=== PATIENT | female | born 1965 | race Caucasian/White ===

== ENCOUNTER 2023-05-16 06:11 | Day surgery (SDC) | payer BC, SELFPAY ==
--- NOTE | 2023-05-11 10:44 | CM ---
Patient is scheduled for surgery with Dr. Mcdonald on 05/16/23. Spoke with patient prior to surgery via telephone. Introduced role of case management. Patient reports that she lives alone in an old multi story farmhouse. She does have a full bathroom
on the first floor and can stay on this floor if needed. She functions independently. She has a shower seat. She has never had VN services in the past. She has a prescription plan and uses [facility].
Patient states that she will talk to her daughter about staying with her the first night she is home but she is unsure of she will be able to. She states that she is very independent and used to doing things on her own. She has no discharge planning
concerns at this time.
[2023-05-16] VITALS (9 sets, daily range): BP systolic 110–170; BP diastolic 52–95; BMI 29.1
[2023-05-16] MEDS: NORMOSOL-R 1000 IV (06:47)
== END 2023-05-16 09:20 | disposition home or self-care (01) ==
LOC: SDS 06:11
PROVIDERS: ATTENDING PHYSICIAN Obstetrics & Gynecology
DX: G24.8 Other dystonia (principal); K62.89 Other specified diseases of anus and rectum; K59.00 Constipation, unspecified; R10.2 Pelvic and perineal pain
CPT/HCPCS: 64646; J0585

== ENCOUNTER 2024-10-15 14:22 | Emergency (ER) | payer BC, SELFPAY ==
[2024-10-15 14:26] VITALS: BP 171/100
[2024-10-15 14:48] LABS: % Basophils 0.5 % (0-2); % Eosinophils 0.9 % (0-6); % Immature Granulocytes 0.3 % (0-0.5); % Lymphocytes 29.8 % (20.5-51.1); % Monocytes 8.4 % (1.7-9.3); % Neutrophils 60.1 % (42.2-75.2); Absolute Eosinophils 0.1 10^3/uL (0-0.7); Absolute Lymphocytes 2.2 10^3/uL (1.2-3.4); Absolute Monocytes 0.6 10^3/uL (0.1-0.6); Absolute Neutrophils 4.4 10^3/uL (1.4-6.5); Hematocrit 41.2 % (37.0-47.0); Mean Corpuscular Hgb 30.5 pg (27.0-31.0); Mean Corpuscular Volume 89.8 fL (81.0-99.0); Nucleated Red Blood Cells % 0 %; Platelet Count 350 10^3/uL (130-400); Red Blood Cell Count 4.59 10^6/uL (4.20-5.40); Red Cell Dist. Width 12.5 % (11.5-14.5); White Blood Cell Count 7.4 10^3/uL (4.8-10.8)
[2024-10-15 15:13] LABS: Albumin 4.5 g/dl (3.5-5.0); Blood Urea Nitrogen 19 mg/dl (7-17); Calcium 9.8 mg/dl (8.4-10.2); Carbon Dioxide 28 mmol/L (22-30); Chloride 109 mmol/L (98-107); Lipase 85 U/L (23-300); Potassium 4.3 mmol/L (3.5-5.1); Sodium 143 mmol/L (135-145); Total Bilirubin 0.9 mg/dl (0.2-1.3); Total Protein 7.4 g/dl (6.3-8.2); eGFR > 60.00
[2024-10-15 15:23] LABS: ALT (SGPT) 23 U/L (0-35); AST (SGOT) 24 U/L (14-36); Alkaline Phosphatase 103 U/L (38-126); Glucose 99 mg/dl (70-99)
[2024-10-15 16:48] VITALS: BP 162/89; BMI 27.5
[2024-10-15 17:00] VITALS: BP 168/79
[2024-10-15] MEDS: TORADOL 15 MG IV (17:45)
[2024-10-15] MEDS: NSS 1000 IV (17:46)
[2024-10-15 18:53] VITALS: BP 171/88
--- NOTE | 2024-10-15 18:58 | ED.GENMED ---
History of Present Illness
General
Chief Complaint: Bowel Problem
Source: patient
Exam Limitations: none
Time Seen by Provider: 10/15/24 16:30
History of Present Illness
History of Present Illness:
Note:
CHIEF COMPLAINT(S)
Severe abdominal pain and altered bowel habits.
HISTORY OF PRESENT ILLNESS
The patient is a 59-year-old female presenting with significant abdominal discomfort and altered bowel habits persisting over the past three weeks. She reports the onset of symptoms with a sudden release of yellow liquid from the rectum, followed by
changes in stool color and consistency. The patient describes her stools becoming increasingly thin, adam to being 'squeezed' and 'flat,' and recently progressing to watery consistency. She notes a sensation adam to 'giving ' with pressure
centralized in the rectal region and has experienced episodic fainting due to pain and pressure.
The patient has a history of gastrointestinal surgical procedures, contributing to her speculation of a potential bowel stricture. She has been evaluated by a career development specialist and prescribed varying doses of medication such as Linzes with minimal
relief.
She reports extreme tenderness and pain mainly focused on the left abdomen, extending to the lower back. Her attempts to consume food exacerbate her symptoms. Additionally, she experiences rectal pain suggestive of obstruction ('a bowling ball'
sensation).
The patient has a history of periodic diarrhea and has experienced blackouts due to the significant pain and abdominal pressure. A previous CT scan showed normal findings, but she describes a progressive worsening of her condition.
ALLERGIES
The patient reports multiple allergies to medications resulting in rashes but could not specify the substances.
MEDICATIONS
Currently taking LInzes for attempts to manage stool consistency and bowel function.
PHYSICAL EXAM
- Heart: Heart sounds clear.
Lungs: CTA bilaterally
- Abdomen: Tenderness predominantly on the left side, with generalized discomfort upon palpation.
- Rectal: Internal examination reveals no significant stool impaction; but rectal exam was quite tender
Nursing notes reviewed and vital signs reviewed.
PLAN
- Obtain a CT scan with contrast to evaluate for potential bowel obstruction or masses.
- Initiate intravenous access for fluid administration.
- Consideration of a rectal examination in coordination with nursing to assess for impacted stool.
- Blood work already reviewed showing stable electrolytes and acceptable blood count.
DIFFERENTIAL DIAGNOSIS
The Differential Diagnosis includes, in no particular order and is not limited to:
1. Bowel obstruction.
2. Fecal impaction.
3. Diverticulitis.
4. Colonic stricture.
5. Inflammatory bowel disease.
Phy Exam
Physical Exam
Physical Exam:
see above
Course
Orders/Labs/Results
Orders:
Orders
10/15/24 14:42
Complete Blood Count/With Diff Urgent
Comprehensive Metabolic Panel Urgent
Lipase Urgent
10/15/24 16:50
CT Abd/pelvis W Iv Cont Urgent
Comment:
Reason For Exam: abdomina pain, constipation with diarrhea
10/15/24 16:53
0.9% Sodium Chloride 1000 ml [Nss] 1,000 ml IV BOLUS
Ketorolac [Toradol] 15 mg IV NOW STA
Abnormal Lab Results
10/15/24
14:42
Chloride 109 H mmol/L
(98-107)
BUN 19 H mg/dl
(7-17)
10/15/24 14:42
10/15/24 14:42
Vital Signs
Initial and Last Documented VS:
Initial Vital Signs
Temp Pulse Resp BP Pulse Ox
98.0 F 80 17 171/100 99
10/15/24 14:26 10/15/24 14:26 10/15/24 14:26 10/15/24 14:26 10/15/24 14:26
Last Documented Vital Signs
Temp Pulse Resp BP Pulse Ox
98.0 F 68 15 158/88 96
10/15/24 16:50 10/15/24 19:00 10/15/24 19:00 10/15/24 19:00 10/15/24 19:00
*Critical Care Note
Total Time (30-74mins, 75-104mins- exclusive of procedures): Not Applicable
Update Note
Update Note:
CT negative workup here unremarkable. Patient notes constipation sensation. Recommended stool softeners. She may have a component of proctitis given her pain. Will suggest anal steroids. And referred to GI. Stable for
ED Attending Note
-
Portions of this chart may have been created with voice recognition software.� Occasional wrong word or��sound alike� substitutions may have occurred due to the inherent limitations of voice recognition software.
Discharge Plan
Departure
Patient Disposition: Home (Routine Discharge)
Date of Disposition: 10/15/24
Time of Disposition: 19:46
Patient with high blood pressure during this ER visit?: No
Discharge Problem:
Pain, rectal
Prescriptions:
New
hydrocortisone acetate [Proctocort] 30 mg suppository
30 mg TX BID Qty: 12 0RF
No Action
spironolactone
6.25 mg PO DAILY
Referrals:
Micah La MD [Active, Gastroenterology]
Ramos Bauer DO [Family Provider, Family Practice]
Activity Restrictions/Additional Instructions:
Use suppository as directed. Increase fiber and use stool softeners. Return if worse. Follow-up with GI for further evaluation
Interventions
Interventions:
*Risk Screen - Suicide Last Done: 10/15/24 14:28
*General Assessment Last Done: 10/15/24 14:28
*Neglect/Abuse Screening Last Done: 10/15/24 14:28
*ED- Fall Risk Assessment Last Done: 10/15/24 18:35
*ED COVID-19 Vaccine History Last Done: 10/15/24 14:28
MG-Enjrpa-Jyregtxvij Assessment Last Done: 10/15/24 17:30
Discharge Date and Time
Print Language: SAMOAN
[2024-10-15 19:00] VITALS: BP 158/88
== END 2024-10-15 20:28 | disposition home or self-care (01) ==
LOC: EMR 14:22
PROVIDERS: Emergency Medicine; EMERGENCY PHYSICIAN Emergency Medicine; FAMILY PHYSICIAN Family Medicine
DX: K62.89 Other specified diseases of anus and rectum (principal)
CPT/HCPCS: 99284; 96374; 96361; 74177; 80053; 83690; 85025; Q9967

== ENCOUNTER 2025-02-28 12:26 | Inpatient (IN) | payer OTHER, SELFPAY ==
--- NOTE | 2025-02-24 10:29 | VNURNOTE ---
Chart reviewed. Patient lives in [place]. Location is out of -[facility] territory. Surgical SHAN Sanchez updated.
[2025-02-25 10:49] LABS: Hematocrit 45.2 % (37.0-47.0); Hemoglobin 14.8 g/dL (12.0-16.0); Mean Corp Hgb Conc. 32.7 g/dL (33.0-37.0); Mean Corpuscular Volume 90.8 fL (81.0-99.0); Platelet Count 358 10^3/uL (130-400); Red Cell Dist. Width 12.6 % (11.5-14.5)
[2025-02-25 11:06] LABS: INR 0.92; PT 12.7 Sec (11.4-14.6)
[2025-02-25 11:07] LABS: APTT 31.1 Sec (23.4-35.0)
[2025-02-25 11:19] LABS: Glycohemoglobin (HgbA1c) 5.3 % (4.0-5.6)
[2025-02-25 11:39] LABS: ALT (SGPT) 24 U/L (0-35); AST (SGOT) 24 U/L (14-36); Albumin 4.9 g/dl (3.5-5.0); Alkaline Phosphatase 107 U/L (38-126); Blood Urea Nitrogen 19 mg/dl (7-17); Calcium 9.9 mg/dl (8.4-10.2); Carbon Dioxide 29 mmol/L (22-30); Chloride 104 mmol/L (98-107); Glucose 85 mg/dl (70-99); Potassium 4.6 mmol/L (3.5-5.1); Sodium 138 mmol/L (135-145); Total Protein 8.1 g/dl (6.3-8.2); eGFR > 60.00
[2025-02-25 13:53] VITALS: BMI 27.1
[2025-02-28] VITALS (13 sets, daily range): BP systolic 120–167; BP diastolic 58–89; BMI 27.1
[2025-02-28] MEDS: NORMOSOL-R/PLASMALYTE-A 1000 IV ×2 (11:35→18:33)
[2025-02-28] MEDS: HEPARIN 5000 UNITS SC (12:26)
[2025-02-28] MEDS: TRANSDERM-SCOP 1 PATCH TRANSDERM (12:49)
--- NOTE | 2025-02-28 15:16 | W.IMMPOSTOP ---
Documented by User: NING Bey 02/28/25 15:28
Surgical Immed Post Op Note
-
Primary Surgeon: Eliezer Whitt MD
Assisting Surgeon: BOBBY Szymanski, Rosie Purcell, LUCINA, DEIRDRE, AURY Marin
Pre-op Diagnosis: Chronic Constipation
Post-op Diagnosis: Same
Procedure Performed: Robotic end sigmoid colostomy creation
Anesthesia Type: GET
Specimen / Cultures: None
Estimated Blood Loss: 10ccs
Complications: None
Operative Findings: End sigmoid colostomy

Documented by User: Jonas Whitt MD 02/28/25 15:30
Surgical Immed Post Op Note
-
Primary Surgeon: Eliezer Whitt MD
Assisting Surgeon: BOBBY Szymanski, Rosie Purcell, LUCINA, DEIRDRE, AURY Marin
Pre-op Diagnosis: Chronic Constipation
Post-op Diagnosis: Same
Procedure Performed: Robotic end sigmoid colostomy creation
Anesthesia Type: GET
Specimen / Cultures: None
Estimated Blood Loss: 10ccs
Complications: None
Operative Findings: End sigmoid colostomy
Patient's daughter updated in the waiting room.
[2025-02-28] MEDS: SUBLIMAZE 50 MCG IV ×2 (15:31→15:47)
[2025-02-28] MEDS: ZOFRAN 4 MG IV (16:00)
--- NOTE | 2025-02-28 17:55 | PTCARENOTE ---
pt arrived to floor, drowsy, lethargic, some nausea, emesis le available. AO. Norm 80 via 18g LH. scopolamine patch right neck. CLD. daughter available for questions. bed low call ulloa in reach
[2025-02-28] MEDS: TYLENOL PO ×2 (18:07→20:19)
[2025-02-28] MEDS: TORADOL IV (21:04)
[2025-03-01] MEDS: TYLENOL PO (01:08)
[2025-03-01 03:03] VITALS: BP 132/65
[2025-03-01] MEDS: NORMOSOL-R/PLASMALYTE-A 1000 IV ×2 (03:16→15:10)
[2025-03-01] MEDS: TORADOL 15 MG IV ×4 (03:22→21:22)
[2025-03-01] MEDS: TYLENOL 650 MG PO ×5 (03:23→21:00)
[2025-03-01 06:08] LABS: Hematocrit 38.4 % (37.0-47.0); Hemoglobin 12.9 g/dL (12.0-16.0); Mean Corp Hgb Conc. 33.6 g/dL (33.0-37.0); Mean Corpuscular Volume 88.3 fL (81.0-99.0); Nucleated Red Blood Cells % 0 %; Platelet Count 323 10^3/uL (130-400); Red Cell Dist. Width 12.4 % (11.5-14.5)
[2025-03-01 06:59] LABS: Blood Urea Nitrogen 19 mg/dl (7-17); Calcium 8.9 mg/dl (8.4-10.2); Carbon Dioxide 28 mmol/L (22-30); Chloride 105 mmol/L (98-107); Estimated Creatinine Clearance 66 ml/min; Glucose 119 mg/dl (70-99); Potassium 4.1 mmol/L (3.5-5.1); Sodium 136 mmol/L (135-145); eGFR > 60.00
[2025-03-01 07:25] VITALS: BP 131/63
--- NOTE | 2025-03-01 09:51 | W.PN.CRS1 ---
Addendum entered and electronically signed by Ryder Quesada MD 03/01/25 10:05:
I saw and examined the patient independently.
The Mining Manager's note was reviewed and I agree with the note, assessment and plan except where noted below.
Comment: This is a 59-year-old female postoperative day 1 from a robotic and sigmoid colostomy.
Plan as below
Original Note:
Today's Communication / Plan
-
continue on clears
d/c veronica
lovenox
oob
stoma teaching
Assessment/Plan
-
POD#1 Robotic end sigmoid colostomy creation
Hgb 12.9, WBC 14.5
Vitals normal
-Continue on clears
-D/C IVFs when tolerating
-OOB as tolerated
-Pain control: tylenol and toradol standing, ultram prn
-D/C veronica
-Wound RN for stoma teaching
-Lovenox for DVT prophylaxis. TEDS/SCDS in place.
-Case management for VN
Subjective Data
Procedure
02/28/2025- Robotic end sigmoid colostomy creation
Subjective Data
Date of Service: March 01, 2025
Patient states she is sore. Otherwise she has no complaints. Denies nausea or vomiting. No bowel function yet.
Objective Data
-
Vital Signs
Temp Pulse Resp BP Pulse Ox
98.2 F 64 14 131/63 96
03/01/25 07:25 03/01/25 07:25 03/01/25 07:25 03/01/25 07:25 03/01/25 07:25
Intake & Output
02/28/25 03/01/25 03/02/25
06:59 06:59 06:59
Intake Total 960 / 960
Output Total 225 / 650 425 / 425
Balance -225 / -170 535 / 535
Intake:
Oral fluids 960 / 960
Output:
Urine, Veronica / 650 425 / 425
Lab Results
03/01/25 05:52
03/01/25 05:52
Physical Exam
-
General: No Acute Distress and AOx3
Abdomen: Soft, Non Distended, Non Tender and Other (colostomy warm and pink)
Skin: Warm and Dry
[2025-03-01 11:00] VITALS: BP 134/71
--- NOTE | 2025-03-01 11:11 | CM ---
CM following re: discharge planning.
Reviewed pt's chart, met with pt.
Pt is a 59 year old female, admitted with primary dx of Chronic constipation, s/p POD#1 Robotic end sigmoid colostomy creation
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 Pt reports she has 2 brothers and they live out of state. Pt requested VN services. [facility]
liaison they do not serve the area pt lives. VN choices given to the pt and she preferred [facility] or [facility]. A referral to above VN vendors made. Awaiting for confirmation.
PCP: Ramos Bauer
Pharmacy: [facility]
D/C plan: home with either [facility] or [facility] and family support.
CM will follow with discharge plan updates as needed.
[2025-03-01] MEDS: REMOVE SCOPOLAMINE PATCH 1 PATCH REMOVE (12:49)
[2025-03-01 15:15] VITALS: BP 124/64
[2025-03-01] MEDS: LOVENOX 40 MG SC (17:10)
[2025-03-01 23:10] VITALS: BP 128/62
[2025-03-02] MEDS: TYLENOL PO ×5 (00:45→19:45)
--- NOTE | 2025-03-02 00:47 | PTCARENOTE ---
Taught pt to burp bag, also explained to pt why and when to burp bag as appropriate. Pt verbalized understanding and will do return demonstration next time.
[2025-03-02] MEDS: TYLENOL 650 MG PO (03:01)
[2025-03-02] MEDS: TORADOL 15 MG IV ×4 (03:01→21:45)
[2025-03-02 06:00] VITALS: BMI 27.0
[2025-03-02 07:09] VITALS: BP 133/70
[2025-03-02 08:42] LABS: Hematocrit 36.0 % (37.0-47.0); Hemoglobin 12.0 g/dL (12.0-16.0); Mean Corp Hgb Conc. 33.3 g/dL (33.0-37.0); Mean Corpuscular Volume 91.4 fL (81.0-99.0); Nucleated Red Blood Cells % 0 %; Platelet Count 283 10^3/uL (130-400); Red Cell Dist. Width 12.6 % (11.5-14.5)
[2025-03-02 09:09] LABS: Blood Urea Nitrogen 15 mg/dl (7-17); Calcium 8.6 mg/dl (8.4-10.2); Carbon Dioxide 30 mmol/L (22-30); Chloride 106 mmol/L (98-107); Estimated Creatinine Clearance 76 ml/min; Glucose 80 mg/dl (70-99); Potassium 3.8 mmol/L (3.5-5.1); Sodium 140 mmol/L (135-145); eGFR > 60.00
--- NOTE | 2025-03-02 09:55 | W.PN.GS2 ---
Today's Communication / Plan
-
Advance diet
Assessment / Plan
-
This is a 59-year-old female postoperative day 2 from a robotic sigmoid end colostomy for constipation. Doing well, expected postoperative course.
Will advance to a low residue diet.
Out of bed and ambulate as able.
Routine ostomy care, stoma teaching.
Colorectal surgery service to resume care tomorrow.
Time Spent
Total Time Spent with Patient (in minutes): 20
Subjective Data
-
Date of Service: March 02, 2025
Interval Events:
No acute events overnight. Slept well. Pain Controlled. Denies Nausea/Vomiting, +bowel function. Tolerating diet.
Objective Data
-
Intake and Output
03/01/25 03/02/25 03/03/25
06:59 06:59 06:59
Intake Total 2640 / 2640
Output Total 225 / 650 1025 / 1025
Balance -225 / -170 1615 / 1615
Intake:
Oral fluids 1680 / 1680
IV fluids (Total) 960 / 960
Output:
Urine, Veronica 225 / 650 425 / 425
Urine, Voided 600 / 600
Other:
Number of approximated MODERATE 2
amounts of urine
Number of approximated LARGE 1
amounts of urine
Vital Signs
Temp Pulse Resp BP Pulse Ox
98.7 F 62 16 133/70 94
03/02/25 07:09 03/02/25 07:09 03/02/25 07:09 03/02/25 07:09 03/02/25 07:09
Lab Results
03/02/25 07:45
03/02/25 07:45
Calcium 8.6 mg/dl (8.4-10.2) 03/02/25 07:45
Total Bilirubin 1.3 mg/dl (0.2-1.3) 02/25/25 08:52
AST 24 U/L (14-36) 02/25/25 08:52
ALT 24 U/L (0-35) 02/25/25 08:52
Alkaline Phosphatase 107 U/L (38-126) 02/25/25 08:52
Total Protein 8.1 g/dl (6.3-8.2) 02/25/25 08:52
Albumin 4.9 g/dl (3.5-5.0) 02/25/25 08:52
Physical Exam
-
GENERAL/NEURO: Awake, Alert, no distress
CHEST: Unlabored breathing on RA
ABDOMEN: Soft, Non-Tender, Non-Distended, incisions clean dry and intact. Ostomy is pink, patent, still slightly swollen but productive of air
Patient has a veronica catheter: No
Patient has a central line: No
[2025-03-02 15:00] VITALS: BP 160/76
[2025-03-02] MEDS: LOVENOX 40 MG SC (16:45)
[2025-03-02 16:57] VITALS: BP 152/86
--- NOTE | 2025-03-02 17:44 | PTCARENOTE ---
pt has tolerated low residue (eating less than 50% of meal) up until now, feeling nauseous and 'belly hot' internally. Encouraged movement, has been mostly in bed but did get out today to come into the hallway, and trips to bathroom. Minimal output,
liquid brown/red. BP slightly elevated at this time offered tramadol /zofran but refused, cool compress to forward. pt very anxious about care and life with colostomy, since teaching has begun she states 'no one told me this'. Room 2111 has
volunteered to speak with her and she has accepted not sure when they will talk, pt has pushed back time currently.
[2025-03-02 23:09] VITALS: BP 150/77
[2025-03-03] MEDS: TORADOL 15 MG IV (03:46)
[2025-03-03] MEDS: TYLENOL PO ×6 (04:00→20:00)
[2025-03-03 06:00] VITALS: BMI 25.9
[2025-03-03 07:25] VITALS: BP 156/86
[2025-03-03 07:46] LABS: Hematocrit 41.0 % (37.0-47.0); Hemoglobin 14.1 g/dL (12.0-16.0); Mean Corp Hgb Conc. 34.4 g/dL (33.0-37.0); Mean Corpuscular Volume 89.5 fL (81.0-99.0); Platelet Count 312 10^3/uL (130-400); Red Cell Dist. Width 12.3 % (11.5-14.5)
[2025-03-03 08:13] LABS: Blood Urea Nitrogen 14 mg/dl (7-17); Calcium 9.1 mg/dl (8.4-10.2); Carbon Dioxide 27 mmol/L (22-30); Chloride 103 mmol/L (98-107); Estimated Creatinine Clearance 67 ml/min; Glucose 76 mg/dl (70-99); Potassium 3.7 mmol/L (3.5-5.1); Sodium 138 mmol/L (135-145); eGFR > 60.00
[2025-03-03] MEDS: TORADOL IV ×4 (09:16→21:00)
--- NOTE | 2025-03-03 10:27 | W.PN.CRS1 ---
Today's Communication / Plan
-
Continue current measures. Await stoma function.
Assessment/Plan
-
POD 3.
1. some nausea. On LRD. Continue diet.
2. incisions fine. Stoma viable.
3. continue current measures. Home with VNAs when nausea resolved.
Subjective Data
Procedure
02/28/2025- Robotic end sigmoid colostomy creation
Subjective Data
Date of Service: March 03, 2025
Mild nausea.
Objective Data
-
Vital Signs
Temp Pulse Resp BP Pulse Ox
98.1 F 60 16 156/86 98
03/03/25 07:25 03/03/25 07:25 03/03/25 07:25 03/03/25 07:25 03/03/25 07:25
Intake & Output
03/02/25 03/03/25 03/04/25
06:59 06:59 06:59
Intake Total 2640 / 2640 1020 / 1020 240 / 240
Output Total 1025 / 1025 /
Balance 1615 / 1615 1015 / 1015 235 / 235
Intake:
Oral fluids 1680 / 1680 1020 / 1020 240 / 240
IV fluids (Total) 960 / 960
Output:
Liquid stool amount 5 5
Colostomy / 09 09 /
Urine, Pined[place] 425 / 425
Urine, Voided 600 / 600
Other:
Number of approximated MODERATE 2 2 2
amounts of urine
Number of approximated LARGE 1 4
amounts of urine
Lab Results
03/03/25 05:48
03/03/25 05:48
Physical Exam
-
General: No Acute Distress
Chest: Clear
Cardiovascular: Regular Rate & Rhythm
Abdomen: Non Distended, Tender (mild incisional) and Other (stoma viable with gas in bag)
Extremities: No Calf Tenderness
Incision: Clear, Dry, Intact and No Skin Erythema
--- NOTE | 2025-03-03 12:30 | WOUNDNOTE ---
[facility] RN note: Patient s/p ostomy surgery -Robotic sigmoid end Colostomy on 02/28/25.
See H&P for complete history. 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 Works FT at [employer].
PMH: Chronic constipation and incontinence.
Ostomy location and type: LLQ stoma pink slightly budded, peristomal skin intact. Lap sites intact.
Instructed patient ostomy pouch emptying and changing with daughter Katherine at bedside. Teaching done with return demonstration of emptying, cutting out wafer, applying and snapping on pouch. Showed patient how to burp pouch if having gas, states
she has burped her pouch already. Ostomy folder given and reviewed with patient. Confirmed with patient can enroll in secure start program. Answered all questions, support and encouragement given.
Malinda wafer # [id number]
Malinda pouch# [id number]
Ostomy supplies ordered from [facility] and at bedside.
Note to case management: VN services recommended for ostomy teaching.
Nursing care plan updated, will follow as needed.
--- NOTE | 2025-03-03 14:04 | CM ---
Patient for possible discharge tomorrow. Pending confirmation of acceptance by VN. CM will continue to follow for discharge planning needs.
[2025-03-03 15:06] VITALS: BP 153/88
--- NOTE | 2025-03-03 17:00 | PTCARENOTE ---
Patient refused Lovenox. Educated on importance, educated on ambulating/pumping her ankles.
[2025-03-03] MEDS: LOVENOX SC (17:11)
[2025-03-03 23:00] VITALS: BP 144/70
[2025-03-04] MEDS: TORADOL IV ×3 (03:00→16:02)
[2025-03-04] MEDS: TYLENOL PO ×5 (04:00→16:02)
[2025-03-04 06:00] VITALS: BMI 25.5
[2025-03-04 07:13] LABS: Hematocrit 44.8 % (37.0-47.0); Hemoglobin 15.3 g/dL (12.0-16.0); Mean Corp Hgb Conc. 34.2 g/dL (33.0-37.0); Mean Corpuscular Volume 88.5 fL (81.0-99.0); Nucleated Red Blood Cells % 0 %; Platelet Count 386 10^3/uL (130-400); Red Cell Dist. Width 12.2 % (11.5-14.5)
[2025-03-04 07:21] LABS: Blood Urea Nitrogen 19 mg/dl (7-17); Calcium 9.6 mg/dl (8.4-10.2); Carbon Dioxide 29 mmol/L (22-30); Chloride 99 mmol/L (98-107); Estimated Creatinine Clearance 58 ml/min; Glucose 82 mg/dl (70-99); Potassium 4.0 mmol/L (3.5-5.1); Sodium 139 mmol/L (135-145); eGFR > 60.00
[2025-03-04 07:40] VITALS: BP 153/87
--- NOTE | 2025-03-04 09:07 | W.PN.CRS1 ---
Today's Communication / Plan
-
discharge
MOM x 1
Assessment/Plan
-
POD 4.
1. Continue regular diet
2. incisions fine. Stoma viable.
3. Okay for home with VN today. All discharge instructions discussed with patient including medications, activity level, and follow up.
4. Will give MOM x 1 prior to leaving (does not need a BM to leave)
Subjective Data
Procedure
02/28/2025- Robotic end sigmoid colostomy creation
Subjective Data
Date of Service: March 04, 2025
Patient states she is no longer nauseous. She is tolerating a diet. Pain is controlled.
Objective Data
-
Vital Signs
Temp Pulse Resp BP Pulse Ox
98.2 F 70 16 153/87 97
03/04/25 07:40 03/04/25 07:40 03/04/25 07:40 03/04/25 07:40 03/04/25 07:40
Intake & Output
03/03/25 03/04/25 03/05/25
06:59 06:59 06:59
Intake Total 1020 / 1020 240 / 240
Output Total
Balance 1015 / 1015 230 / 230
Intake:
Oral fluids 1020 / 1020 240 / 240
Output:
Liquid stool amount
Colostomy
Other:
Number of approximated MODERATE 2 2
amounts of urine
Number of approximated LARGE 4
amounts of urine
Lab Results
03/04/25 05:34
03/04/25 05:34
Physical Exam
-
General: No Acute Distress and AOx3
Abdomen: Soft, Non Distended, Non Tender and Other (colostomy warm and pink with flatus in the bag)
Skin: Warm and Dry
Incision: Clear, Dry, Intact
--- NOTE | 2025-03-04 13:28 | CM ---
Patient has been medically cleared for discharge to home with [facility] RN services. Patient has arranged for transport home.
[2025-03-04 15:25] VITALS: BP 150/90
== END 2025-03-04 17:55 | disposition home health service (06) | DRG 331 ==
LOC: 2 SOUTH 12:26
PROVIDERS: Physician Assistant; Registered Nurse; ADMITTING PHYSICIAN Surgery; FAMILY PHYSICIAN Family Medicine
PROC: 0D1N4Z4 Bypass Sigmoid Colon to Cutaneous, Percutaneous Endoscopic Approach (ICD-10-PCS; 2025-02-28)
DX: K59.09 Other constipation (principal); D18.03 Hemangioma of intra-abdominal structures; Z93.3 Colostomy status
CPT/HCPCS: 80048; 80053; 83036; 85025; 85027; 85610; 85730; 86850; 86900; 86901; 87070; 93005; J1335